=== PATIENT | female | born 1955 | race Caucasian/White ===

== ENCOUNTER → 2016-07-12 | Day surgery (SDC) | payer BC ==
[~2016-07-12] MED LIST: ATROPINE SULFATE 1% OPHT SOLN 2 ML BTL ONE; DEXAMETHASONE SOD PHOS 4 MG/ML VIAL ONE; EPINEPHrine HCL (1:1000) 1 MG/ML VIAL ONE; ESTR1 PO; FLURBIPROFEN 0.03% OPHT SOLN 2.5 ML BTL ONE; HYALURONIDASE/LIDOCAINE/BUPIVACAINE 11 ML SYR TL ONE; LACTATED RINGER'S 1000 ML INJ 1,000 ML ONE; NEOMYCIN/POLYMYXIN/DEXAMETHASONE OPTH OINT 3.5 GM TUBE ONE; PHENYLEPHRINE HCL 2.5 % OPTH SOLN 15 ML BTL ONE; PROPOFOL 200 MG/20 ML AMP IV ONE; SODIUM CHLORIDE 0.9% INJ 10 ML ONE; TETRACAINE 0.5% OPTH SOLN 15 ML BTL ONE; TROPICAMIDE 1% OPHT SOLN 15 ML BTL ONE; ceFAZolin INJ 1,000 MG VIAL ONE
--- NOTE | 2016-08-03 07:57 | TN ---
cc: TERRY DILLON MD DATE OF SURGERY July 12, 2016 DATE OF 1955 PREOPERATIVE DIAGNOSIS Macular hole right eye. POSTOPERATIVE DIAGNOSIS Macular hole right eye. PROCEDURE Pars plana vitrectomy, membrane peeling, gas-fluid exchange, right eye. ANESTHESIA MAC. SURGEON Terry Dillon MD. COMPLICATIONS None. PROCEDURE After informed consent was obtained and the eye was anesthetized with peribulbar anesthesia, she was brought to the operating room and the right eye was prepared and draped in the usual sterile fashion. A wire lid speculum was placed in the patient's right eye. 23-gauge vitrectomy cannulas were then placed in the lower temporal, supratemporal and supranasal quadrants 3 mm posterior to the corneoscleral limbus. An infusion cannula was placed lower temporally. Core vitrectomy was then performed using the vitreous cutter. The vitrectomy was carried out as far as possible to the vitreous base. Posteriorly the internal limiting membrane was peeled off from around the macular hole using intraocular forceps. Careful indirect ophthalmoscopy with scleral depression was then performed and no peripheral retinal breaks were noted. A complete air-fluid exchange was then performed. The air was then exchanged for 16% C3F8. The three vitrectomy cannulas were then removed. Subconjunctival injections of dexamethasone and Ancef were placed. An atropine drop, Maxitrol ointment and a patch and shield were then applied. The patient tolerated the procedure well. There were no complications. She will remain face down over the next five days. [facility] Terry Dillon MD TAB/SSB /10:03 AM /7:50 AM
== END | disposition home or self-care (01) ==
LOC: ESDC 12:59
PROVIDERS: ATTEND Ophthalmology Retina Specialist
DX: H35.341 Macular cyst, hole, or pseudohole, right eye (principal)
CPT/HCPCS: 00145; 67042; J0171; J0690; J1100; J7120

== ENCOUNTER → 2017-06-01 | Day surgery (SDC) | payer BC ==
[~2017-06-01] MED LIST changes: -ATROPINE SULFATE 1% OPHT SOLN 2 ML BTL ONE; +ATROPINE SULFATE 1% OPHT SOLN 5 ML BTL ONE; +BALANCED SALT SOLN OPHT IRRIG 15 ML BTL ONE; -HYALURONIDASE/LIDOCAINE/BUPIVACAINE 11 ML SYR TL ONE; +HYALURONIDASE/LIDOCAINE/BUPIVACAINE 5 ML SYR ONE; +MIDAZOLAM HCL 2 MG/2 ML VIAL ONE; +PROPOFOL 100 MG/10 ML INJ IV ONE; -PROPOFOL 200 MG/20 ML AMP IV ONE
--- NOTE | 2017-06-14 10:21 | MP ---
cc: Terry Joe MD DATE OF OPERATION: 06/01/2017 PREOPERATIVE DIAGNOSIS: Macular hole left eye. POSTOPERATIVE DIAGNOSIS: Macular hole left eye. PROCEDURE: Pars plana vitrectomy, membrane pealing, gas-fluid exchange all left eye. ANESTHESIA: MAC. SURGEON: Terry Joe MD COMPLICATIONS: None. PROCEDURE NOTE: After informed consent was obtained and the eye was anesthetized with peribulbar anesthesia, she was brought to the operating room and the left eye was prepared and draped in the usual sterile fashion. A wire lid speculum was placed in the patient's left eye. 23 gauge vitrectomy cannulas were then placed in the lower temporal, supratemporal and supranasal quadrants 3 millimeters posterior to the corneoscleral limbus. An infusion cannula was placed lower temporally. Core vitrectomy was then performed using the vitreous cutter. The vitrectomy was carried out as far as possible to the vitreous base. Posteriorly the internal limiting membrane was peeled off from around the macular hole using intraocular forceps. Careful indirect ophthalmoscopy with scleral depression was then performed and no peripheral retinal breaks were noted. A complete air fluid exchange was then performed. The air was then exchanged for 16% C3F8. The three vitrectomy cannulas were then removed. Subconjunctival injections of dexamethasone and Ancef were placed. An atropine drop, Maxitrol ointment and a patch and shield were then applied. The patient tolerated the procedure well. There were no complications. She will remain face down over the next 4 days. [facility] Terry Joe MD TAB/DL , 07:51 PM , 06:36 AM
== END | disposition home or self-care (01) ==
LOC: ESDC 13:15
PROVIDERS: ATTEND Ophthalmology Retina Specialist
DX: H35.342 Macular cyst, hole, or pseudohole, left eye (principal); H43.822 Vitreomacular adhesion, left eye; H25.13 Age-related nuclear cataract, bilateral
CPT/HCPCS: 00145; 67042; J0171; J0690; J1100; J2250; J7120